=== PATIENT | female | born 1995 | race Caucasian/White ===

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

== ENCOUNTER → 2017-04-25 | Outpatient (CLI) | payer BC ==
[2017-04-25 13:37] LABS: HEMATOCRIT 41.5 % (37-47); HEMOGLOBIN 13.6 g/dL (12.0-16.0); MEAN CELL VOLUME 84.5 fL (80-100); MEAN CORPUSCULAR HEMOGLOBIN 27.7 pg (25-34); MEAN CORPUSCULAR HGB CONC 32.8 g/dl (32-36); MEAN PLATELET VOLUME 11.6 fL (7.4-10.4); PLATELET COUNT 225 K/uL (130-400); RED CELL DISTRIBUTION WIDTH CV 15.4 % (11.5-14.5); RED CELL DISTRIBUTION WIDTH SD 47.4 fL (36.4-46.3)
== END | disposition home or self-care (01) ==
LOC: C.LABBC 10:49
PROVIDERS: ATTEND Nurse Practitioner Family
DX: R59.9 Enlarged lymph nodes, unspecified (principal)